=== PATIENT | female | born 1965 | race Caucasian/White ===

== ENCOUNTER → 2017-02-22 | Outpatient (CLI) | payer MEDICARE, OTHER ==
--- NOTE | 2017-02-22 14:00 | NM ---
EXAMINATION TYPE: NM bone scan whole body DATE OF EXAM: 02/22/2017 1:54 PM COMPARISON: CT scan 12/19/2012 HISTORY: Back pain Delayed whole-body scanning was performed following the injection of 26.4 mCi Tc 99m MDP. Images acq uired 3 hours post injection. FINDINGS: There is a curvature of the lumbar spine. There is Mild increased uptake as well as areas of photopenic defect throughout the mid and lower lumbar spine likely on a postsurgical basis. Abnormal uptake involving the feet, knees and shoulders likely is post arthritic. IMPRESSION: Mild increased uptake mixed with photopenic defects throughout the mid and lower lumbar spine likely postsurgical correlate with x-ray as clinically warranted. More focal photopenic defect at the approx imate level of L2-3 on the left.
== END | disposition home or self-care (01) ==
LOC: RADNMMAIN 09:46
PROVIDERS: ATTEND Orthopaedic Surgery Orthopaedic Surgery of the Spine
DX: M51.17 Intervertebral disc disorders with radiculopathy, lumbosacral region (principal); M47.817 Spondylosis without myelopathy or radiculopathy, lumbosacral region; Z98.1 Arthrodesis status
CPT/HCPCS: 78306; A9503

== ENCOUNTER 2017-03-25 12:14 | Emergency (ER) | payer MEDICARE, OTHER ==
[2017-03-25] MEDS ORDERED: DICYCLOMINE 10 MG CAP PO STA (13:52)
--- NOTE | 2017-03-25 13:52 | ED ---
General Adult HPI - General Chief complaint: GI Bleed Stated complaint: Abd/Side Pain Time Seen by Provider: 03/25/17 12:36 Source: patient, RN notes reviewed Mode of arrival: ambulatory Limitations: no limitations - History of Present Illness Initial comments: Patient is a 52-year-old female presents to the emergency room for evaluation of abdominal pain and blood in stools. Patient states she's been having left lower quadrant pain since Tuesday. Patient states that she went to have a bowel movement yesterday and was passing bright red clots. Patient states this has never happened before. Patient denies any rectal pain. Patient denies history of hemorrhoids or anal fissures. Patient states that today the left lower quadrant pain has worsened. Patient states she hasn't had a full bowel movement in a few days. Patient states when she wiped herself today she noticed bright red blood on the toilet paper. Patient denies history of ulcerative colitis, Crohn's or diverticulitis. Patient denies nausea or vomiting. Patient denies history of abdominal surgeries. Patient denies recent travel outside of the country or sick contacts. Patient states she had a low-grade fever last night. - Related Data Home Medications Medication Instructions Recorded Confirmed ALPRAZolam [Xanax] 0.5 mg PO HS 01/08/15 03/25/17 DULoxetine HCL [Cymbalta] 120 mg PO HS 01/08/15 03/25/17 Mometasone/Formoterol [Dulera 200 2 puff INHALATION RT-BID 01/08/15 03/25/17 Mcg/5 Mcg Inhaler] Omeprazole [PriLOSEC] 20 mg PO HS 01/08/15 03/25/17 Baclofen [Lioresal] 20 mg PO TID 03/25/17 03/25/17 Previous Rx's Medication Instructions Recorded Ciprofloxacin HCl [Cipro] 500 mg PO Q12HR 10 Days 03/25/17 metroNIDAZOLE [Flagyl] 500 mg PO Q8HR 10 Days 03/25/17 Allergies Allergy/AdvReac Type Severity Reaction Status Date / Time codeine Allergy Rash/Hives Verified 03/25/17 14:03 meperidine HCl [From Demerol] AdvReac Vomiting Verified 03/25/17 14:03 Review of Systems ROS Statement: Those systems with pertinent positive or pertinent negative responses have been documented in the HPI. ROS Other: All systems not noted in ROS Statement are negative. 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 History of Any Multi-Drug Resistant Organisms: None Reported Past Surgical History: Back Surgery, Hysterectomy Additional Past Surgical History / Comment(s): 2 laminectomies, back surgeries with fusions plates and screws, cervical fusion with plates and screws Past Anesthesia/Blood Transfusion Reactions: No Reported Reaction Past Psychological History: Anxiety, Depression, Panic Disorder Smoking Status: Current every day smoker Past Alcohol Use History: None Reported Past Drug Use History: Marijuana Additional Drug Use History / Comment(s): has medical marijuana card uses states uses 1 gm/day General Exam - General Exam Comments Initial Comments: Laying in exam room, no acute distress. Limitations: no limitations General appearance: alert, in no apparent distress Head exam: Present: atraumatic, normocephalic, normal inspection Eye exam: Present: normal appearance ENT exam: Present: normal exam Neck exam: Present: normal inspection Respiratory exam: Present: normal lung sounds bilaterally. Absent: respiratory distress Cardiovascular Exam: Present: regular rate, normal rhythm, normal heart sounds GI/Abdominal exam: Present: soft, tenderness (Left lower quadrant), normal bowel sounds. Absent: distended, guarding, rebound, rigid Rectal exam: Present: normal inspection, normal rectal tone Extremities exam: Present: normal inspection Back exam: Present: normal inspection Neurological exam: Present: alert, oriented X3, CN II-XII intact, normal gait Psychiatric exam: Present: normal affect, normal mood Skin exam: Present: warm, dry, intact, normal color. Absent: rash Course Vital Signs 03/25/17 03/25/17 03/25/17 12:30 15:00 18:30 Temperature 99.5 F 97.7 F Pulse Rate 106 H 88 101 H Respiratory 20 18 20 Rate Blood Pressure 121/91 134/68 167/76 O2 Sat by Pulse 97 99 99 Oximetry Medical Decision Making - Medical Decision Making Patient is a 52-year-old female presents emergency room for evaluation of hematochezia and left lower quadrant pain. WBC elevated. Fecal occult positive. CT abdomen/pelvis significant for colitis. Plan was to admit patient for further evaluation. Patient refused to be admitted and wanted to be discharged home. Explained to patient that she would be leaving AGAINST MEDICAL ADVICE. Explained the risks of leaving AGAINST MEDICAL ADVICE. Patient states she fully understands and still wishes to be discharged. Will place patient on Cipro/Flagyl and have her follow-up with her primary care provider/GI specialist on Tuesday. Return parameters discussed. Case discussed Dr. Zuniga. - Lab Data Result diagrams: 03/25/17 13:55 03/25/17 13:55 Lab Results 03/25/17 03/25/17 03/25/17 Range/Units 13:55 13:55 13:55 WBC 14.6 H (3.8-10.6) k/uL RBC 5.44 H (3.80-5.40) m/uL Hgb 16.7 H (11.4-16.0) gm/dL Hct 48.8 H (34.0-46.0) % MCV 89.7 (80.0-100.0) fL MCH 30.7 (25.0-35.0) pg MCHC 34.3 (31.0-37.0) g/dL RDW 13.1 (11.5-15.5) % Plt Count 176 (150-450) k/uL Neutrophils % 80 % Lymphocytes % 15 % Monocytes % 4 % Eosinophils % 1 % Basophils % 1 % Neutrophils # 11.7 H (1.3-7.7) k/uL Lymphocytes # 2.1 (1.0-4.8) k/uL Monocytes # 0.5 (0-1.0) k/uL Eosinophils # 0.1 (0-0.7) k/uL Basophils # 0.1 (0-0.2) k/uL Sodium 142 (137-145) mmol/L Potassium 4.4 (3.5-5.1) mmol/L Chloride 104 (98-107) mmol/L Carbon Dioxide 29 (22-30) mmol/L Anion Gap 9 mmol/L BUN 10 (7-17) mg/dL Creatinine 0.78 (0.52-1.04) mg/dL Est GFR (MDRD) Af Amer >60 (>60 ml/min/1.73 sqM) Est GFR (MDRD) Non-Af >60 (>60 ml/min/1.73 sqM) Glucose 107 H (74-99) mg/dL Plasma Lactic Acid Reed (0.7-2.0) mmol/L Calcium 10.0 (8.4-10.2) mg/dL Total Bilirubin 0.8 (0.2-1.3) mg/dL AST 19 (14-36) U/L ALT 22 (9-52) U/L Alkaline Phosphatase 101 (38-126) U/L Total Protein 8.2 (6.3-8.2) g/dL Albumin 4.7 (3.5-5.0) g/dL Amylase 48 (30-110) U/L Lipase 62 (23-300) U/L Urine Color Urine Appearance (Clear) Urine pH (5.0-8.0) Ur Specific [place] (1.001-1.035) Urine Protein (Negative) Urine Glucose (UA) (Negative) Urine Ketones (Negative) Urine Blood (Negative) Urine Nitrite (Negative) Urine Bilirubin (Negative) Urine Urobilinogen (<2.0) mg/dL Ur Leukocyte Esterase (Negative) Urine RBC (0-5) /hpf Urine WBC (0-5) /hpf Ur Squamous Epith Cells (0-4) /hpf Amorphous Sediment (None) /hpf Urine Mucus (None) /hpf Stool Occult Blood Positive H (Negative) 03/25/17 03/25/17 Range/Units 13:55 14:52 WBC (3.8-10.6) k/uL RBC (3.80-5.40) m/uL Hgb (11.4-16.0) gm/dL Hct (34.0-46.0) % MCV (80.0-100.0) fL MCH (25.0-35.0) pg MCHC (31.0-37.0) g/dL RDW (11.5-15.5) % Plt Count (150-450) k/uL Neutrophils % % Lymphocytes % % Monocytes % % Eosinophils % % Basophils % % Neutrophils # (1.3-7.7) k/uL Lymphocytes # (1.0-4.8) k/uL Monocytes # (0-1.0) k/uL Eosinophils # (0-0.7) k/uL Basophils # (0-0.2) k/uL Sodium (137-145) mmol/L Potassium (3.5-5.1) mmol/L Chloride (98-107) mmol/L Carbon Dioxide (22-30) mmol/L Anion Gap mmol/L BUN (7-17) mg/dL Creatinine (0.52-1.04) mg/dL Est GFR (MDRD) Af Amer (>60 ml/min/1.73 sqM) Est GFR (MDRD) Non-Af (>60 ml/min/1.73 sqM) Glucose (74-99) mg/dL Plasma Lactic Acid Reed 1.1 (0.7-2.0) mmol/L Calcium (8.4-10.2) mg/dL Total Bilirubin (0.2-1.3) mg/dL AST (14-36) U/L ALT (9-52) U/L Alkaline Phosphatase (38-126) U/L Total Protein (6.3-8.2) g/dL Albumin (3.5-5.0) g/dL Amylase (30-110) U/L Lipase (23-300) U/L Urine Color Dark Yellow Urine Appearance Cloudy H (Clear) Urine pH 6.0 (5.0-8.0) Ur Specific [place] 1.022 (1.001-1.035) Urine Protein 1+ H (Negative) Urine Glucose (UA) Negative (Negative) Urine Ketones 2+ H (Negative) Urine Blood Trace H (Negative) Urine Nitrite Negative (Negative) Urine Bilirubin 1+ H (Negative) Urine Urobilinogen 4.0 (<2.0) mg/dL Ur Leukocyte Esterase Trace H (Negative) Urine RBC 11 H (0-5) /hpf Urine WBC 3 (0-5) /hpf Ur Squamous Epith Cells 7 H (0-4) /hpf Amorphous Sediment Rare H (None) /hpf Urine Mucus Many H (None) /hpf Stool Occult Blood (Negative) - Radiology Data Radiology results: report reviewed, image reviewed Disposition Clinical Impression: Colitis, Hematochezia Disposition: Left Against Medical Advice Condition: Stable Instructions: Colitis (ED), Gastrointestinal Bleeding (ED) Additional Instructions: Take antibiotics as directed. Please follow up with GI specialist or primary care provider on Tuesday. If any new symptom arises or symptoms worsen, return to ER as soon as possible. Prescriptions: metroNIDAZOLE [Flagyl] 500 mg PO Q8HR 10 Days Ciprofloxacin HCl [Cipro] 500 mg PO Q12HR 10 Days Referrals: Olman Carrera DO [Primary Care Provider] - 1-2 days Tommy Forman MD [STAFF PHYSICIAN] - 1-2 days Time of Disposition: 18:12
[2017-03-25 14:20] LABS: Basophils # (A) 0.1 k/uL (0-0.2); Basophils % (A) 1 %; CH 30.6; CHCM 34.2; Eosinophils # (A) 0.1 k/uL (0-0.7); Eosinophils % (A) 1 %; HCT 48.8 % (34.0-46.0); HDW 2.35; HGB 16.7 gm/dL (11.4-16.0); Luc # (Auto) 0.16; Luc % (Auto) 1; Lymphocytes # (A) 2.1 k/uL (1.0-4.8); Lymphocytes % (A) 15 %; MCH 30.7 pg (25.0-35.0); MCHC 34.3 g/dL (31.0-37.0); MCV 89.7 fL (80.0-100.0); Mean Platelet Volume 8.7; Monocytes # (A) 0.5 k/uL (0-1.0); Monocytes % (A) 4 %; Neutrophils # (A) 11.7 k/uL (1.3-7.7); Neutrophils % (A) 80 %; RBC 5.44 m/uL (3.80-5.40); RDW 13.1 % (11.5-15.5); WBC 14.6 k/uL (3.8-10.6)
[2017-03-25 14:28] LABS: ALT 22 U/L (9-52); AST 19 U/L (14-36); Alkaline Phosphatase 101 U/L (38-126); Amylase 48 U/L (30-110); Anion Gap 9 mmol/L; Blood Urea Nitrogen 10 mg/dL (7-17); Carbon Dioxide 29 mmol/L (22-30); Chloride 104 mmol/L (98-107); Glucose 107 mg/dL (74-99); Non-African American GFR(MDRD) >60 (>60 ml/min/1.73 sqM); Potassium 4.4 mmol/L (3.5-5.1); Sodium 142 mmol/L (137-145); Total Bilirubin 0.8 mg/dL (0.2-1.3); Total Protein 8.2 g/dL (6.3-8.2)
--- NOTE | 2017-03-25 14:36 | XR ---
EXAMINATION TYPE: XR KUB DATE OF EXAM: 03/25/2017 2:30 PM CLINICAL HISTORY: Left lower quadrant pain for 2 days. TECHNIQUE: Single upright KUB image of the abdomen is obtained. COMPARISON: CT lumbar spine December 19, 2012. FINDINGS: Scattered gas is seen in non-distended small bowel loops. Gas and fecal material is seen in non-distended colon. Spleen is mildly prominent. There is dextroconvex scoliotic curvature centere d in the mid lumbar spine. There is new posterior fusion hardware present. There is new artificial di sc material. Extensive bilateral heterotopic ossification remains present in the mid to lower lumbar spine. No pneumoperitoneum is identified. Visualized lung bases are clear. IMPRESSION: Overall nonobstructive bowel gas pattern.
[2017-03-25] MEDS ORDERED: RX INFO: IV CONTRAST WAS GIVEN 1 EACH MISC MISCELLANE PRN (14:56)
[2017-03-25] MEDS ORDERED: IOHEXOL 350 MG/ML 25 ML BOTTLE (ORAL USE) PO PRN (14:56)
[2017-03-25 15:06] LABS: Amorphous Sediment,Urine Rare /hpf; Appearance,Urine Cloudy (Clear); Bilirubin,Urine 1+ (Negative); Glucose,Urine (UA) Negative (Negative); Ketones,Urine 2+ (Negative); Leukocyte Esterase,Urine Trace (Negative); Mucus,Urine Many /hpf; Nitrite,Urine Negative (Negative); Particle Count 25335; Protein,Urine 1+ (Negative); RBC,Urine 11 /hpf (0-5); Specific Gravity,Urine 1.022 (1.001-1.035); Squamous Epithelial Cell,Urine 7 /hpf (0-4); UA Billing (MACRO vs. MICRO) MICRO; WBC,Urine 3 /hpf (0-5)
--- NOTE | 2017-03-25 17:41 | CT ---
EXAMINATION TYPE: CT abdomen pelvis w con DATE OF EXAM: 03/25/2017 5:23 PM HISTORY: Pt states of LLQ pain and blood in stool. CT DLP: 1327.6mGycm Automated Exposure Control for Dose Reduction was Utilized. CONTRAST: CT scan of the abdomen and pelvis is performed with IV Contrast, patient injected with 100 mL of Omni paque 300. COMPARISON: None. FINDINGS: LUNG BASES: No significant abnormality is appreciated. Minimal bibasilar subsegmental dependent atele ctasis and right lower lobe single cystic lung space. LIVER/GB: No significant abnormality is appreciated. PANCREAS: No significant abnormality is seen. SPLEEN: No significant abnormality is seen. ADRENALS: Bilateral adrenal gland masses are visualized and described on a prior CT lumbar spine repo rt dated 12/19/2012. Images were not available at the time of dictation for comparison. These measure 1.9 cm on the right and 2.8 cm on the left. No precontrast images were obtained to identify if these masses are compatible with lipid rich adrenal gland adenomas. Direct comparison for measurement with prior imaging would be recommended to ensure stability. KIDNEYS: The kidneys enhance symmetrically. Emanating from the posterior inferior renal cortex there is a right inferior pole renal lesion that is hypoattenuated and too small to accurately characterize measuring 5 mm. BOWEL: There is short segment bowel wall thickening of the splenic flexure and descending colon in it s proximal portion with surrounding pericolonic inflammatory fat stranding. Bowel wall thickening param sures up to 1.3 cm nondependently. There is no proximal dilatation of bowel. UTERUS/ADNEXA: No gross abnormality seen. LYMPH NODES: No greater than 1cm abdominal or pelvic lymph nodes are appreciated. OSSEOUS STRUCTURES: Degenerative changes are appreciated of the visualized thoracolumbar and lumbosac ral spine. Additionally postsurgical changes are redemonstrated at L3-S1 with persistent grade 1 ante rolisthesis of L3 on L4. No suspicious osseous lesions are identified. [place] site is seen within th e right iliac bone. OTHER: No significant additional abnormality is seen. IMPRESSION: 1. Splenic flexure and descending colitis, relatively short segment, and therefore after resolution o f symptoms colonoscopy is recommended to ensure no underlying colonic mass. 2. Bilateral adrenal lesions favored to represent benign etiologies as these were seen on the prior C T lumbar spine dated 12/19/2012 although direct measurement is possible as images are not available fo r comparison (report only).
[2017-03-25] MEDS ORDERED: CIPROFLOXACIN HCL 500 MG TAB PO STA (18:14)
[2017-03-25] MEDS ORDERED: metroNIDAZOLE 500 MG TAB PO STA (18:15)
[2017-03-25 18:36] VITALS: BP 167/76; PULSE 101; RESP 20; TEMP 97.7
== END 2017-03-25 18:30 | disposition left against medical advice (07) ==
LOC: EC 12:14
DX: K52.9 Noninfective gastroenteritis and colitis, unspecified (principal); K92.1 Melena; Z53.21 Procedure and treatment not carried out due to patient leaving prior to being seen by health care provider; K21.9 Gastro-esophageal reflux disease without esophagitis; J45.909 Unspecified asthma, uncomplicated; M79.7 Fibromyalgia; Z98.1 Arthrodesis status; F41.9 Anxiety disorder, unspecified; F32.9 Major depressive disorder, single episode, unspecified; F41.0 Panic disorder [episodic paroxysmal anxiety]; F17.200 Nicotine dependence, unspecified, uncomplicated; F12.90 Cannabis use, unspecified, uncomplicated; Z79.899 Other long term (current) drug therapy; Z88.5 Allergy status to narcotic agent
CPT/HCPCS: 36415; 80053; 82150; 83605; 83690; 85025; 82272; 81001; 87040; 74000; 74177; 99285; Q9967

== ENCOUNTER → 2017-04-04 | Outpatient (CLI) | payer MEDICARE, OTHER ==
--- NOTE | 2017-04-06 11:52 | MM ---
Reason for exam: screening (asymptomatic). Last mammogram was performed 1 year ago. History: Patient is postmenopausal and had first child at age 31. Physical Findings: A clinical breast exam by your physician is recommended on an annual basis and results should be correlated with mammographic findings. MG 3D Screening Mammo W/Cad Bilateral CC and MLO view(s) were taken. Prior study comparison: April 01, 2016, bilateral MG screening mammo w CAD. March 26, 2015, bilateral MG screening mammo w CAD. July 23, 2013, bilateral digital screening mammo w/CAD. There are scattered fibroglandular densities. No significant changes when compared with prior studies. ASSESSMENT: Negative, BI-RAD 1 RECOMMENDATION: Routine screening mammogram of both breasts in 1 year.
== END | disposition home or self-care (01) ==
LOC: RADMAMWWP 14:39
PROVIDERS: ATTEND Family Medicine
DX: Z12.31 Encounter for screening mammogram for malignant neoplasm of breast (principal)
CPT/HCPCS: 77063; G0202

== ENCOUNTER 2017-05-27 08:16 | Day surgery (SDC) | payer MEDICARE, OTHER ==
[2017-05-26 09:25] VITALS: BMI 30.4
[2017-05-27 08:58] VITALS: TEMP 98.6
[2017-05-27] MEDS ORDERED: LACTATED RINGERS 1,000 ML IV ONE (09:07)
[2017-05-27] MEDS ORDERED: LIDOCAINE 1% 20 ML VIAL (10MG/ML) FOR IV START INTRADERMA ONE (09:08)
[2017-05-27] MEDS ORDERED: PROPOFOL 10 MG/ML 20 ML VIAL IV ONE (09:25)
--- NOTE | 2017-05-27 09:48 | P.PCN ---
Date of Procedure: 05/27/17 Preoperative Diagnosis: Postoperative Diagnosis: Procedure(s) Performed: BRIEF HISTORY: Patient is a 52-year-old pleasant white female, scheduled for an elective colonoscopy as a part of evaluation of intermittent rectal bleeding and prior history of colon polyps. PROCEDURE PERFORMED: Colonoscopy with snare polypectomy. PREOPERATIVE DIAGNOSIS: Rectal bleeding and history of colon polyps. IV sedation per Anesthesia. PROCEDURE: After informed consent was obtained, the patient, was brought into the endoscopy unit. IV sedation was administered by Anesthesia under continuous monitoring. Digital rectal examination was normal. Initially the Olympus CF- 160 flexible video colonoscope was then inserted in the rectum, gradually advanced into the cecum without any difficulty. Careful examination was performed as the scope was gradually being withdrawn. Ileocecal valve and the appendiceal orifice were visualized and appeared normal. Prep was excellent. Mucosa of the cecum, ascending colon, appeared normal. In the hepatic lesion there were 2 polyps measuring 5 mm and 2 cm in size both of which were removed by snare polypectomy. The rest of the transverse colon, descending colon, sigmoid colon, and rectum appeared normal. Sigmoid diverticulosis seen. Retroflexion was performed in the rectum and small internal hemorrhoids were seen. The patient tolerated the procedure well. IMPRESSION: 5 mm and 2 cm broad-based hepatic flexure polyp serous was snare polypectomy Scattered sigmoid diverticulosis. Small internal hemorrhoids. RECOMMENDATIONS: Findings of this examination were discussed with the patient as well as her family. She was advised to follow with the biopsy results. If the biopsy shows a tubular adenoma she can have a repeat colonoscopy in 3-5 years.. Implants: Indications for Procedure: Operative Findings: Description of Procedure:
[2017-05-27 10:11] VITALS: BP 162/86; PULSE 84; RESP 16
== END 2017-05-27 10:12 | disposition home or self-care (01) ==
LOC: ORWHC2ENDO 08:16
PROVIDERS: ATTEND Internal Medicine Gastroenterology
DX: D12.3 Benign neoplasm of transverse colon (principal); K57.30 Diverticulosis of large intestine without perforation or abscess without bleeding; K64.8 Other hemorrhoids; Z86.010 Personal history of colon polyps; J45.909 Unspecified asthma, uncomplicated; K21.9 Gastro-esophageal reflux disease without esophagitis; Z79.891 Long term (current) use of opiate analgesic; Z79.899 Other long term (current) drug therapy; Z88.5 Allergy status to narcotic agent
CPT/HCPCS: 88305; 45385; J2704

== ENCOUNTER → 2018-12-27 | Outpatient (CLI) | payer MEDICARE, OTHER ==
--- NOTE | 2018-12-29 09:23 | MM ---
Reason for exam: screening (asymptomatic). Last mammogram was performed 1 year and 9 months ago. History: Patient is postmenopausal and had first child at age 31. Physical Findings: A clinical breast exam by your physician is recommended on an annual basis and results should be correlated with mammographic findings. MG 3D Screening Mammo W/Cad Bilateral CC and MLO view(s) were taken. Prior study comparison: April 04, 2017, bilateral MG 3d screening mammo w/cad. April 01, 2016, bilateral MG screening mammo w CAD. There are scattered fibroglandular densities. No significant changes when compared with prior studies. ASSESSMENT: Negative, BI-RAD 1 RECOMMENDATION: Routine screening mammogram of both breasts in 1 year.
== END | disposition home or self-care (01) ==
LOC: RADMAMWWP 13:36
PROVIDERS: ATTEND Family Medicine
DX: Z12.31 Encounter for screening mammogram for malignant neoplasm of breast (principal)
CPT/HCPCS: 77063; 77067

== ENCOUNTER → 2020-05-29 | Outpatient (CLI) | payer MEDICARE, OTHER ==
--- NOTE | 2020-05-30 09:38 | MM ---
Reason for exam: screening (asymptomatic). Last mammogram was performed 1 year and 5 months ago. History: Patient is postmenopausal and had first child at age 31. Physical Findings: A clinical breast exam by your physician is recommended on an annual basis and results should be correlated with mammographic findings. MG 3D Screening Mammo W/Cad Bilateral CC and MLO view(s) were taken. Prior study comparison: December 27, 2018, bilateral MG 3d screening mammo w/cad. April 04, 2017, bilateral MG 3d screening mammo w/cad. There are scattered fibroglandular densities. No significant changes when compared with prior studies. ASSESSMENT: Negative, BI-RAD 1 RECOMMENDATION: Routine screening mammogram of both breasts in 1 year.
== END | disposition home or self-care (01) ==
LOC: RADMAMWWP 15:35
PROVIDERS: ATTEND Family Medicine
DX: Z12.31 Encounter for screening mammogram for malignant neoplasm of breast (principal)
CPT/HCPCS: 77063; 77067

== ENCOUNTER → 2022-11-04 | Outpatient (CLI) | payer MEDICARE, OTHER ==
--- NOTE | 2022-11-05 08:45 | MM ---
Reason for Exam: Screening (asymptomatic). Last mammogram was performed 2 year(s) and 5 month(s) ago. Patient History: Menarche at age 8. First Full-Term at age 31. Late child-bearing (after 30). Right ovary removed at age 40. Hysterectomy at age 40. Postmenopausal. Risk Values: Corie 5 year model risk: 2.0%. NCI Lifetime model risk: 11.4%. Prior Study Comparison: 04/04/2017 Bilateral Screening Mammogram, [facility]. 12/27/2018 Bilateral Screening Mammogram, [facility]. 05/29/2020 Bilateral Screening Mammogram, [facility]. Tissue Density: There are scattered fibroglandular densities. Findings: Analyzed By CAD. There is no suspicious group of microcalcifications or new suspicious mass in either breast. No significant change from prior exams. Overall Assessment: Negative, BI-RAD 1 Management: Screening Mammogram of both breasts in 1 year. A clinical breast exam by your physician is recommended on an annual basis and results should be correlated with mammographic findings. Electronically signed and approved by: Joe Wise D.O.
== END | disposition home or self-care (01) ==
LOC: RADMAMWWP 16:38
PROVIDERS: ATTEND Family Medicine
DX: Z12.31 Encounter for screening mammogram for malignant neoplasm of breast (principal); Z78.0 Asymptomatic menopausal state
CPT/HCPCS: 77063; 77067

== ENCOUNTER → 2024-01-06 | Outpatient (CLI) | payer MEDICARE, OTHER ==
--- NOTE | 2024-01-10 22:17 | MM ---
Reason for Exam: Screening (asymptomatic). Last mammogram was performed 1 year(s) and 2 month(s) ago. Patient History: Menarche at age 8. First Full-Term at age 31. Late child-bearing (after 30). Right ovary removed at age 40. Hysterectomy at age 40. Postmenopausal. Risk Values: Corie 5 year model risk: 2.1%. NCI Lifetime model risk: 11.2%. Prior Study Comparison: 12/27/2018 Bilateral Screening Mammogram, [facility]. 05/29/2020 Bilateral Screening Mammogram, [facility]. 11/04/2022 Bilateral MG 3D screening mammo w/cad, [facility]. Tissue Density: There are scattered fibroglandular densities. Findings: Analyzed By CAD. There is no suspicious group of microcalcifications or new suspicious mass in either breast. Overall Assessment: Negative, BI-RAD 1 Management: Screening Mammogram of both breasts in 1 year. . Patient should continue monthly self-breast exams. A clinical breast exam by your physician is recommended on an annual basis. This exam should not preclude additional follow-up of suspicious palpable abnormalities. Note on Corie scores and lifetime risk: 1. A Corie score greater than 3% is considered moderate risk. If this is the case, consider specialist referral to assess eligibility for a risk reducing agent. 2. If overall lifetime risk for the development of breast cancer is 20% or higher, the patient may qualify for future screening with alternating mammogram and breast MRI. Electronically signed and approved by: Abigail Tuttle M.D. Radiologist
== END | disposition home or self-care (01) ==
LOC: RADMAMWWP 15:48
PROVIDERS: ATTEND Family Medicine
DX: Z12.31 Encounter for screening mammogram for malignant neoplasm of breast (principal)
CPT/HCPCS: 77063; 77067

== ENCOUNTER → 2024-04-06 | Outpatient (CLI) | payer MEDICARE, OTHER ==
--- NOTE | 2024-04-08 18:55 | CTL ---
EXAMINATION TYPE: CT Low Dose Lung DATE OF EXAM ORDERED: 04/06/2024 HISTORY: 59-year-old female Z12.2 SCREENING LUNG CA F17.210 CURRENT SMOKER, 23 pack-year history. [place] g cancer screening CT DLP: [address] CTDI: 2.4 mGy Automated exposure control for dose reduction was used. SCREENING VISIT: Baseline COMPARISON: None TECHNIQUE: Low dose computed tomography scan was performed through the chest with coronal and sagitta l reconstructions. CT DIAGNOSTIC QUALITY: Satisfactory FINDINGS: The heart is normal size with trace anterior pericardial fluid. Scattered LAD and RCA coronary artery calcifications are present. Mild aneurysm ascending aorta 4.2 cm. Bovine configuration to the aortic arch. No thoracic lymph adenopathy by CT size criteria. Mild emphysematous change. Mild diffuse bronchial wall thickening. Calcified granuloma right lower lobe, axial image 181. Calcified granuloma subpleural left posterior midlung, axial image 139. A couple tiny 2 mm pulmonary nodules left lower lobe, axial image 163 and 165. 3 mm lateral left basilar pulmonary nodule, axial image 179 Calcific granuloma basilar left lower lobe axial image 186 and 199. No suspicious pulmonary nodule. No consolidation or pleural effusion. Visualized upper abdomen shows partial visualization of a low density left adrenal nodule measuring a t least 2.2 cm compatible with a lipid rich adrenal adenoma. Bones: ACDF hardware partially visualized. IMPRESSION: 1. LungRADS 2, benign. Scattered calcified granulomas. Noncalcified nodules measure up to 3 mm. 2. COPD with mild emphysema. Recommend smoking cessation. 3. Known lipid rich left adrenal adenoma. 4. Mild aneurysm ascending aorta 4.[address] LUNG RAD AND CT CHEST RECOMMENDATION: Lung-Rad 2 Benign Appearance or Behavior: Continue annual sc reening with LDCT in 12 months. S Modifier (other clinically significant findings): None
== END | disposition home or self-care (01) ==
LOC: RADCTMAIN 16:28
PROVIDERS: ATTEND Family Medicine
DX: Z12.2 Encounter for screening for malignant neoplasm of respiratory organs (principal); I71.21 Aneurysm of the ascending aorta, without rupture; J44.9 Chronic obstructive pulmonary disease, unspecified; J84.10 Pulmonary fibrosis, unspecified; D35.02 Benign neoplasm of left adrenal gland; J43.9 Emphysema, unspecified; F17.210 Nicotine dependence, cigarettes, uncomplicated
CPT/HCPCS: 71271

== ENCOUNTER → 2024-05-07 | Outpatient (CLI) | payer MEDICARE, OTHER ==
--- NOTE | 2024-05-07 13:39 | MM ---
Reason for Exam: Clinical finding. Last screening mammogram was performed 4 month(s) ago. Indicated Problems: Lump or thickening of the left side for 4 Year(s). Patient History: Menarche at age 8. First Full-Term at age 31. Late child-bearing (after 30). Right ovary removed at age 40. Hysterectomy at age 40. Postmenopausal. Risk Values: Corie 5 year model risk: 2.2%. NCI Lifetime model risk: 10.9%. Prior Study Comparison: 05/29/2020 Bilateral Screening Mammogram, [facility]. 11/04/2022 Bilateral MG 3D screening mammo w/cad, [facility]. 01/06/2024 Bilateral MG 3D screening mammo w/cad, [facility]. Tissue Density: Left: The breasts are heterogeneously dense, which may obscure small masses. Findings: Analyzed By CAD. There is increased density involving the medial left breast with mild skin thickening suggested. Correlate for underlying infection. Ultrasound is recommended for further evaluation. Overall Assessment: Incomplete: need additional imaging evaluation, BI-RAD 0 Management: Diagnostic Breast Ultrasound of the left breast. . Results were given to the patient verbally at the time of exam. Patient should continue monthly self-breast exams. A clinical breast exam by your physician is recommended on an annual basis. This exam should not preclude additional follow-up of suspicious palpable abnormalities. Note on Corie scores and lifetime risk: 1. A Corie score greater than 3% is considered moderate risk. If this is the case, consider specialist referral to assess eligibility for a risk reducing agent. 2. If overall lifetime risk for the development of breast cancer is 20% or higher, the patient may qualify for future screening with alternating mammogram and breast MRI. Electronically signed and approved by: Terrance Sharma M.D. Radiologis
--- NOTE | 2024-05-07 14:06 | USB ---
Reason for Exam: Clinical finding. Patient History: Menarche at age 8. First Full-Term at age 31. Late child-bearing (after 30). Right ovary removed at age 40. Hysterectomy at age 40. Postmenopausal. Risk Values: Corie 5 year model risk: 2.2%. NCI Lifetime model risk: 10.9%. Technique: Method: Targeted. Prior Study Comparison: 05/29/2020 Bilateral Screening Mammogram, [facility]. 11/04/2022 Bilateral MG 3D screening mammo w/cad, [facility]. 01/06/2024 Bilateral MG 3D screening mammo w/cad, [facility]. Findings: The upper inner quadrant of the left breast, the lower inner quadrant of the left breast, the axilla of the left breast and the retroareolar of the left breast were scanned. No solid or cystic masses are identified. An image clinically with regards to possible breast infection. Short-term follow-up advised. Overall Assessment: Probably benign, BI-RAD 3 Management: Diagnostic Mammogram of the left breast in 3 months. A clinical breast exam by your physician is recommended on an annual basis and results should be correlated with mammographic findings. This exam should not preclude additional follow-up of suspicious palpable abnormalities. Results were given to the patient verbally at the time of exam. Electronically signed and approved by: Terrance Sharma M.D. Radiologis
== END | disposition home or self-care (01) ==
LOC: RADMAMWWP 13:06
PROVIDERS: ATTEND Family Medicine
DX: R92.332 Mammographic heterogeneous density, left breast (principal); Z78.0 Asymptomatic menopausal state
CPT/HCPCS: 77061; 77065

== ENCOUNTER → 2024-05-25 | Outpatient (CLI) | payer MEDICARE, OTHER ==
--- NOTE | 2024-05-25 14:17 | USB ---
Reason for Exam: Follow-up at short interval from prior study. Patient History: Menarche at age 8. First Full-Term at age 31. Late child-bearing (after 30). Right ovary removed at age 40. Hysterectomy at age 40. Postmenopausal. Risk Values: Corie 5 year model risk: 2.2%. NCI Lifetime model risk: 10.9%. Technique: Method: Targeted. Prior Study Comparison: 11/04/2022 Bilateral MG 3D screening mammo w/cad, [facility]. 01/06/2024 Bilateral MG 3D screening mammo w/cad, [facility]. 05/07/2024 Left MG 3D diag mammo w/cad LT, [facility]. Findings: The retroareolar of the left breast was scanned. Technique utilized:US breast limited LT Image; Ultrasound imaging of: Area of concern, retroareolar region and axilla. Decrease in vascularity around multiple dilated ducts. No evidence for organizing fluid collection or mass. Overall Assessment: Benign, BI-RAD 2 Management: Screening Mammogram of the left breast in 1 year. A clinical breast exam by your physician is recommended on an annual basis and results should be correlated with mammographic findings. This exam should not preclude additional follow-up of suspicious palpable abnormalities. Results were given to the patient verbally at the time of exam. Electronically signed and approved by: Nestor Petersen DO
== END | disposition home or self-care (01) ==
LOC: RADUSWWP 13:50
PROVIDERS: ATTEND Family Medicine
DX: R92.8 Other abnormal and inconclusive findings on diagnostic imaging of breast (principal); Z78.0 Asymptomatic menopausal state

== ENCOUNTER → 2024-06-08 | Outpatient (CLI) | payer MEDICARE, OTHER ==
[2024-06-08 18:55] LABS: T4, Free (Free Thyroxine) 1.27 ng/dL (0.80-1.80)
== END | disposition home or self-care (01) ==
LOC: LABWHC1 13:17
PROVIDERS: ATTEND Family Medicine
DX: E03.9 Hypothyroidism, unspecified (principal)
CPT/HCPCS: 36415; 84439; 84443

== ENCOUNTER → 2024-08-09 | Outpatient (CLI) | payer MEDICARE, OTHER ==
--- NOTE | 2024-08-10 08:50 | MM ---
Reason for Exam: Follow-up at short interval from prior study. Last screening mammogram was performed 7 month(s) ago. Patient History: Menarche at age 8. First Full-Term at age 31. Late child-bearing (after 30). Right ovary removed at age 40. Hysterectomy at age 40. Postmenopausal. Risk Values: Corie 5 year model risk: 2.2%. NCI Lifetime model risk: 10.9%. Prior Study Comparison: 11/04/2022 Bilateral MG 3D screening mammo w/cad, [facility]. 01/06/2024 Bilateral MG 3D screening mammo w/cad, [facility]. 05/07/2024 Left MG 3D diag mammo w/cad , [facility]. Tissue Density: Left: The breasts are almost entirely fatty. Findings: Analyzed By CAD. No evidence for mass or distortion. Previously noted skin thickening has resolved. No suspicious microcalcifications. Overall Assessment: Benign, BI-RAD 2 Management: Screening Mammogram of both breasts in 6 months. . Results were given to the patient verbally at the time of exam. Patient should continue monthly self-breast exams. A clinical breast exam by your physician is recommended on an annual basis. This exam should not preclude additional follow-up of suspicious palpable abnormalities. Note on Corie scores and lifetime risk: 1. A Corie score greater than 3% is considered moderate risk. If this is the case, consider specialist referral to assess eligibility for a risk reducing agent. 2. If overall lifetime risk for the development of breast cancer is 20% or higher, the patient may qualify for future screening with alternating mammogram and breast MRI. Electronically signed and approved by: Terrance Sharma M.D. Radiologis
== END | disposition home or self-care (01) ==
LOC: RADMAMWWP 12:52
PROVIDERS: ATTEND Family Medicine
DX: R92.8 Other abnormal and inconclusive findings on diagnostic imaging of breast
CPT/HCPCS: 77061; 77065

== ENCOUNTER → 2024-10-10 | Outpatient (CLI) | payer MEDICARE, OTHER ==
[2024-10-10 15:40] LABS: Basophils # (A) 0.04 X 10*3/uL (0.00-0.10); Basophils % (A) 0.8 %; Eosinophils # (A) 0.09 X 10*3/uL (0.04-0.35); Eosinophils % (A) 1.7 %; HCT 41.5 % (37.2-46.3); HGB 12.3 g/dL (12.0-15.0); Lymphocytes # (A) 1.68 X 10*3/uL (0.90-5.00); Lymphocytes % (A) 32.5 %; MCH 24.9 pg (27.0-32.0); MCHC 29.6 g/dL (32.0-37.0); MCV 84.2 FL (80.0-97.0); Mean Platelet Volume 12.4 FL (9.5-12.2); Monocytes % (A) 7.7 %; NRBC Per 100 WBC 0 X 10*3/uL (0.00-0.01); Neutrophils # (A) 2.93 X 10*3/uL (1.80-7.70); Neutrophils % (A) 56.7 %; Platelet Count 188 X 10*3/uL (140-440); RBC 4.93 X 10*6/uL (4.10-5.20); WBC 5.17 X 10*3/uL (4.50-10.00)
[2024-10-10 16:03] LABS: BUN/Creat Ratio 10.44 Ratio (12.00-20.00); Blood Urea Nitrogen 9.4 mg/dL (9.0-27.0); Calcium 9.5 mg/dL (8.7-10.3); Carbon Dioxide 29.2 mmol/L (21.6-31.8); Chloride 104 mmol/L (96-109); Chol/HDL Ratio 6.38 Ratio; Glucose 112 mg/dL (70-110); LDL Cholesterol,Calculated 196.3 mg/dL (0.0-131.0); Potassium 5.4 mmol/L (3.5-5.5); Sodium 143 mmol/L (135-145)
[2024-10-10 16:04] LABS: ALT 14 U/L (8-44); AST 23 U/L (13-35)
== END | disposition home or self-care (01) ==
LOC: LABWHC1 08:59
PROVIDERS: ATTEND Family Medicine
DX: E78.5 Hyperlipidemia, unspecified (principal); E03.9 Hypothyroidism, unspecified; Z68.35 Body mass index [BMI] 35.0-35.9, adult
CPT/HCPCS: 36415; 80048; 80061; 83036; 84439; 84443; 84450; 84460; 85025

== ENCOUNTER → 2025-05-24 | Outpatient (CLI) | payer MEDICARE, OTHER ==
--- NOTE | 2025-05-27 07:28 | MM ---
Reason for Exam: Screening (asymptomatic). Last mammogram was performed 1 year(s) and 4 month(s) ago. Patient History: Menarche at age 8. First Full-Term at age 31. Late child-bearing (after 30). Right ovary removed at age 40. Hysterectomy at age 40. Postmenopausal. Risk Values: Corie 5 year model risk: 2.2%. NCI Lifetime model risk: 10.6%. Prior Study Comparison: 01/06/2024 Bilateral MG 3D screening mammo w/cad, [facility]. 05/07/2024 Left MG 3D diag mammo w/cad LT, [facility]. 08/09/2024 Left MG 3D diag mammo w/cad LT, [facility]. Tissue Density: There are scattered areas of fibroglandular density. Findings: Analyzed By CAD. Small areas of asymmetric density are unchanged. There is no suspicious group of microcalcifications or new suspicious mass in either breast. Overall Assessment: Benign, BI-RAD 2 Management: Screening Mammogram of both breasts in 1 year. Patient should continue monthly self-breast exams. A clinical breast exam by your physician is recommended on an annual basis. This exam should not preclude additional follow-up of suspicious palpable abnormalities. Note on Corie scores and lifetime risk: 1. A Corie score greater than 3% is considered moderate risk. If this is the case, consider specialist referral to assess eligibility for a risk reducing agent. 2. If overall lifetime risk for the development of breast cancer is 20% or higher, the patient may qualify for future screening with alternating mammogram and breast MRI. [facility], , 05/27/2025 7:24 AM. Electronically signed and approved by: Abigail Tuttle M.D. Radiologist
== END | disposition home or self-care (01) ==
LOC: RADMAMWWP 15:04
PROVIDERS: ATTEND Family Medicine
DX: Z12.31 Encounter for screening mammogram for malignant neoplasm of breast (principal); R92.323 Mammographic fibroglandular density, bilateral breasts; Z78.0 Asymptomatic menopausal state
CPT/HCPCS: 77063; 77067